=== PATIENT | male | born 1990 | race African-American/Black ===

== ENCOUNTER 2023-09-18 19:50 | Emergency (ER) | payer OTHER ==
[~2023-09-18] VITALS: Ht 182.9 cm; Wt 95.3 kg
[2023-09-18] MEDS ORDERED: KETOROLAC TROMETHAMINE 30 MG VIAL IM STA (20:39)
== END 2023-09-18 21:46 | disposition home or self-care (01) ==
LOC: ER 19:50
DX: M25.562 Pain in left knee (principal)